=== PATIENT | male | born 1945 ===

== ENCOUNTER 2023-06-03 15:04 | Emergency (ER) | payer OTHER ==
[~2023-06-03] VITALS: Ht 172.7 cm; Wt 113.8 kg
[2023-06-03 15:10] VITALS: BP 152/78
[2023-06-03 16:53] LABS: BASOPHILS ABSOLUTE AUTO 0.03 K/mm3 (0.00-0.23); BASOPHILS PERCENT AUTO 0 % (0-2); EOSINOPHILS ABSOLUTE AUTO 0.03 K/mm3 (0.00-0.68); EOSINOPHILS PERCENT AUTO 0 % (0-6); Hematocrit 39.4 % (37.0-53.0); Hemoglobin 12.5 g/dL (13.5-17.5); IMMATURE GRAN ABSOLUTE AUTO 0.08 K/mm3 (0.00-0.10); IMMATURE GRAN PERCENT AUTO 1 % (0-1); LYMPHOCYTES ABSOLUTE AUTO 2.29 K/mm3 (0.84-5.20); LYMPHOCYTES PERCENT AUTO 19 % (21-46); MONOCYTES ABSOLUTE AUTO 0.89 K/mm3 (0.16-1.47); MONOCYTES PERCENT AUTO 7 % (4-13); Mean Corpuscular HGB 29.6 pg (26.0-34.0); Mean Corpuscular HGB Conc 31.7 g/dL (31.5-36.5); Mean Corpuscular Volume 93 fL (80-100); Mean Platelet Volume 9.7 fL (9.1-12.4); NEUTROPHILS ABSOLUTE AUTO 8.76 K/mm3 (1.96-9.15); NEUTROPHILS PERCENT AUTO 73 % (41-73); Platelet Count 252 K/mm3 (150-400); RDW Coefficient Variation 14.1 % (11.7-14.2); RDW Standard Deviation 48.2 fL (35.1-46.3); Red Blood Cell Count 4.23 M/mm3 (4.30-5.90); White Blood Cell Count 12.08 K/mm3 (4.00-11.30)
[2023-06-03 18:02] LABS: Albumin, Blood 2.7 g/dL (3.4-5.0); Albumin/Globulin Ratio 0.5 (0.8-1.8); Bilirubin, Total 1.7 mg/dL (0.1-1.0); Bun/Creatinine Ratio 34.2 (12.0-20.0); Calcium, Blood 9.4 mg/dL (8.5-10.1); Creatinine, Blood 1.11 mg/dL (0.60-1.20); Total Protein, Blood 7.7 g/dL (6.4-8.2)
[2023-06-03 19:10] LABS: C-REACTIVE PROTEIN, EXT RANGE 18.1 mg/dL (0.000-0.300)
[2023-06-04 14:22] LABS: Potassium, Blood 4.9 mmol/L (3.5-5.5)
== END 2023-06-03 18:16 | disposition home or self-care (01) ==
LOC: ER 15:04
PROVIDERS: Physician Assistant
DX: R22.31 Localized swelling, mass and lump, right upper limb (principal); Z53.21 Procedure and treatment not carried out due to patient leaving prior to being seen by health care provider
CPT/HCPCS: 36415; 80053; 85025; 86140; 99283

== ENCOUNTER 2023-06-10 13:34 | Emergency (ER) | payer OTHER ==
[~2023-06-10] VITALS: Ht 175.3 cm; Wt 90.7 kg
[2023-06-10 13:49] LABS: Bicarbonate Venous 20.9 mmol/L (24.0-30.0); PCO2 Venous 41.6 mmHg (38-42); pH Blood Venous 7.34 (7.34-7.37)
[2023-06-10 13:51] LABS: Base Excess Venous -3.1 mmol/L
[2023-06-10 13:57] LABS: Hematocrit 39.7 % (37.0-53.0); Hemoglobin 12.8 g/dL (13.5-17.5); Mean Corpuscular HGB 28.7 pg (26.0-34.0); Mean Corpuscular HGB Conc 32.2 g/dL (31.5-36.5); Mean Corpuscular Volume 89 fL (80-100); Mean Platelet Volume 10.1 fL (9.1-12.4); Platelet Count 271 K/mm3 (150-400); RDW Coefficient Variation 13.7 % (11.7-14.2); RDW Standard Deviation 44.4 fL (35.1-46.3); Red Blood Cell Count 4.46 M/mm3 (4.30-5.90); White Blood Cell Count 28.15 K/mm3 (4.00-11.30)
[2023-06-10 14:16] LABS: International Normalized Ratio 1.31; Prothrombin Time Results 13.5 Sec (9.7-11.5)
[2023-06-10 14:21] LABS: BAND PERCENT MAN 23 % (0-8); BASOPHILS PERCENT MAN 0 % (0-2); EOSINOPHILS PERCENT MAN 0 % (0-6); LYMPHOCYTES ABSOLUTE MAN 1.12 K/mm3 (0.84-5.20); LYMPHOCYTES PERCENT MAN 4 % (21-46); MONOCYTES ABSOLUTE MAN 0.84 K/mm3 (0.16-1.47); MONOCYTES PERCENT MAN 3 % (4-13); NEUTROPHILS ABSOLUTE MAN 26.17 K/mm3 (1.96-9.15); SEG NEUTROPHILS PERCENT MAN 70 % (41-73); TOTAL CELLS COUNTED 100
[2023-06-10 14:23] LABS: Alanine Aminotransfer (ALT/SGP 115 U/L (12-78); Albumin, Blood 2.4 g/dL (3.4-5.0); Albumin/Globulin Ratio 0.4 (0.8-1.8); Alk Phos 227 U/L (50-136); Anion Gap 13 mmol/L (6-16); Aspartate Aminotrans (AST/SGOT 271 U/L (12-37); Blood Urea Nitrogen 72 mg/dL (8-24); Bun/Creatinine Ratio 22.6 (12.0-20.0); CO2, Blood 22 mmol/L (21-32); Calcium, Blood 9.2 mg/dL (8.5-10.1); Chloride, Blood 97 mmol/L (98-108); Creatinine, Blood 3.18 mg/dL (0.60-1.20); Ethanol (Alcohol), Blood, Med <3 mg/dL; Globulin, Blood 5.4 g/dL (2.2-4.0); Glomerular Filtration Rate 19 (60-); Glucose, Blood 171 mg/dL (70-99); Potassium, Blood 3.9 mmol/L (3.5-5.5); Sodium, Blood 132 mmol/L (136-145); Total Protein, Blood 7.8 g/dL (6.4-8.2)
[2023-06-10 15:59] LABS: Influenza A, PCR NEGATIVE (NEGATIVE); Influenza B, PCR NEGATIVE (NEGATIVE); Resp Syncytial Virus, PCR NEGATIVE (NEGATIVE); SARS-Cov-2 (COVID-19) PCR, MMC NEGATIVE (NEGATIVE)
[2023-06-10 16:28] VITALS: BP 106/86
== END 2023-06-10 17:27 | disposition short-term general hospital (02) ==
LOC: ER 13:34
PROVIDERS: Emergency Medicine
DX: I61.6 Nontraumatic intracerebral hemorrhage, multiple localized (principal); I48.91 Unspecified atrial fibrillation; E87.20 Acidosis, unspecified; R79.89 Other specified abnormal findings of blood chemistry; R00.0 Tachycardia, unspecified; R09.02 Hypoxemia; Z91.81 History of falling; Z20.822 Contact with and (suspected) exposure to COVID-19
CPT/HCPCS: 0241U; 36415; 70450; 71045; 72125; 80053; 82803; 82947; 83605; 83880; 84145; 85025; 85610; 87040; 87077; 87147; 87186; 93005; 93010; 94660; 96361; 96374; 96375; 99285-25; J0696; J7030; J7120; J7168